=== PATIENT | female | born 1995 | race Caucasian/White ===

== ENCOUNTER 2019-04-03 16:46 | Emergency (ER) | payer OTHER ==
[2019-04-03] MEDS ORDERED: Adenosine 6 MG/2 ML VIAL ONE (16:55)
[2019-04-03 18:10] LABS: #Lymphocytes 1.1 thou/uL (1.20-3.40); #Monocytes 0.5 thou/uL (0.11-0.59); %Basophils 0.1 % (0.0-1.0); %Eosinophils 0.4 % (0.0-10.0); %Lymphocytes 9.8 % (21.0-51.0); %Neutrophils 85.8 % (42.0-75.0); Hemoglobin 12.2 g/dL (12.0-16.0); Mean Corpuscular HGB CONC 32.9 g/dL (32.0-36.0); Mean Corpuscular Hemoglobin 27.6 pg (27.0-31.0); Mean Platelet Volume 7.6 fL (7.4-10.4); Platelet Count 210 thou/uL (130-400); RBC Distribution Width 12.1 % (11.5-14.5); Red Blood Cell (RBC) Count 4.41 mill/uL (4.20-5.40); White Blood Cell (WBC) Count 11.7 thou/uL (4.8-10.8)
[2019-04-03 18:23] LABS: BHCG - Serum Negative (NEGATIVE); Pregs Control Background? CLEAR/WHITE (CLR/WHITE); Pregs Control Bar Appear? YES (CONTROL BAR)
--- NOTE | 2019-04-03 18:32 | RAD ---
FRONTAL RADIOGRAPH CHEST 04/03/19 COMPARISON: None. HISTORY: Tachycardia. FINDINGS: No pneumothorax, pleural fluid, focal consolidation, or alveolar edema. Heart and mediastinal contour s are unremarkable. IMPRESSION: No acute findings. POS: [facility]
[2019-04-03 18:36] LABS: ALT (SGPT) 13 U/L (8-55); AST (SGOT) 25 U/L (5-34); Albumin 4.4 g/dL (3.5-5.0); Alkaline Phosphatase 31 U/L (40-150); Anion Gap 12 mmol/L (10-20); BUN (Urea Nitrogen) 9 mg/dL (7.0-18.7); Bilirubin, Total 0.3 mg/dL (0.2-1.2); Calc. Creatinine Clearance 0 mL/min (70-130); Carbon Dioxide 23 mmol/L (22-29); Chloride 104 mmol/L (98-107); Estimated GFR-MDRD Greater than 90; Globulin 2.8 g/dL (2.4-3.5); Glucose 105 mg/dL (70-105); Magnesium 1.9 mg/dL (1.6-2.6); Potassium 3.7 mmol/L (3.5-5.1); Protein, Total 7.2 g/dL (6.0-8.3); Sodium 135 mmol/L (136-145)
[2019-04-03 18:54] LABS: CKMB 3.3 ng/mL (0-6.6)
[2019-04-03 19:48] LABS: Troponin I 0.276 ng/mL (< 0.028)
== END 2019-04-03 21:03 | disposition home or self-care (01) ==
LOC: ERS 16:46
DX: I47.1 Supraventricular tachycardia (principal); R79.89 Other specified abnormal findings of blood chemistry
CPT/HCPCS: 36415; 71045; 80053; 82553; 83735; 83880; 84443; 84484; 84703; 85025; 93005; 96361; 96374; J0153

== ENCOUNTER 2019-05-24 15:43 | Outpatient (CLI) | payer OTHER, BC ==
[2019-05-24 16:08] LABS: Hemoglobin 13.7 g/dL (12.0-16.0); Mean Corpuscular HGB CONC 32.7 g/dL (32.0-36.0); Mean Corpuscular Hemoglobin 27.7 pg (27.0-31.0); Mean Corpuscular Volume 84.7 fL (78.0-98.0); Mean Platelet Volume 7.1 fL (7.4-10.4); Platelet Count 277 thou/uL (130-400); RBC Distribution Width 12.1 % (11.5-14.5); Red Blood Cell (RBC) Count 4.96 mill/uL (4.20-5.40); White Blood Cell (WBC) Count 6.4 thou/uL (4.8-10.8)
[2019-05-24 16:14] LABS: INR-International Normal Ratio 0.9; PTT 26.3 SEC (22.9-36.1); Prothrombin Time 12.3 SEC (12.0-14.7)
[2019-05-24 16:36] LABS: Anion Gap 13 mmol/L (10-20); BUN (Urea Nitrogen) 12 mg/dL (7.0-18.7); Calc. Creatinine Clearance 0 mL/min (70-130); Calcium 9.8 mg/dL (7.8-10.44); Carbon Dioxide 26 mmol/L (22-29); Chloride 101 mmol/L (98-107); Estimated GFR-MDRD 88; Glucose 84 mg/dL (70-105); Potassium 3.8 mmol/L (3.5-5.1); Sodium 136 mmol/L (136-145)
[2019-05-24 17:23] LABS: BHCG - Serum Negative (NEGATIVE); Pregs Control Background? CLEAR/WHITE (CLR/WHITE); Pregs Control Bar Appear? YES (CONTROL BAR)
== END 2019-05-24 15:44 | disposition home or self-care (01) ==
LOC: LABBT 15:43
PROVIDERS: ATTEND Internal Medicine Cardiovascular Disease
DX: Z01.812 Encounter for preprocedural laboratory examination (principal); I47.1 Supraventricular tachycardia
CPT/HCPCS: 80048; 84703; 85027; 85610; 85730

== ENCOUNTER 2019-05-27 09:17 | Day surgery (SDC) | payer OTHER, BC ==
[2019-05-24 14:37] VITALS: BMI 23.3
[2019-05-27] MEDS ORDERED: Propofol 1,000 MG/100 ML VIAL IV ONE ×2 (10:01→10:40)
[2019-05-27] MEDS ORDERED: Fentanyl 100 MCG/2 ML VIAL ONE ×2 (10:01→11:32)
[2019-05-27] MEDS ORDERED: Lidocaine 1% (PF) 30 ML VIAL ONE (10:04)
[2019-05-27] MEDS ORDERED: Phenylephrine HCL 10 MG/ML VIAL ONE (10:16)
[2019-05-27] MEDS ORDERED: Midazolam HCl 2 mg/2 ml Vial ONE (10:17)
[2019-05-27] MEDS ORDERED: Heparin 10,000 UNITS/1 ML VIAL ONE ×2 (10:34→10:50)
[2019-05-27] MEDS ORDERED: Isoproterenol 0.2 MG/1 ML AMP ONE ×2 (10:48→11:25)
[2019-05-27] MEDS ORDERED: Propofol 500 MG/50 ML VIAL ONE (12:47)
--- NOTE | 2019-05-27 19:15 | OP ---
DATE OF PROCEDURE: 05/27/2019 PROCEDURE PERFORMED: Electrophysiology study and radiofrequency ablation. 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 DESCRIPTION OF PROCEDURE: The patient received propofol by Anesthesia specialist. After adequate level of sedation achieved, the left and right femoral veins were prepped, draped, and anesthetized using subcutaneous lidocaine. On the left side, a 6 and 8-[place] sheath was used to advance a decapolar and octapolar catheters into the right atrium, which were interpositioned to the right ventricle, right atrium, His bundle, and CS positions. The pacing, mapping, and recording were performed in each location including pacing the left atrium from the CS. On the right side, an 8-[place] short sheath was introduced under ultrasound guidance, through which a 4 mm ablation catheter was advanced to the right atrium and 3D map of the right atrium was obtained. Basic EP study was performed with the following findings. Baseline parameters; sinus rhythm, cycle length at 831 milliseconds, MN 189 milliseconds, QRS 59 milliseconds, QT 434 milliseconds, AH 153 milliseconds, HV 41 milliseconds measured. AV Wenckebach cycle length was initially 460 milliseconds, retrograde Wenckebach cycle length was 500 milliseconds. Av sanjeev ERP was measured at 600/360 milliseconds with dual AV sanjeev physiology seen. Concentric retrograde VA conduction was noted. Isuprel was administered, on which we were easily able to induce a narrow complex tachycardia with cycle length 280 milliseconds on Isuprel. Override ventricular pacing terminated the arrhythmia. The VA conduction during the SVT was very short, less than 80 milliseconds, suggestive of AV sanjeev reentrant tachycardia. The tachycardia was also inducible with extrastimuli testing. With the presence of slow pathway and AVNRT like tachycardia, decision was made to perform a slow pathway modification. A total of 15 lesions were delivered with total duration of 4 minute and 4 seconds with 40 mary, 50-degree settings through the 4 mm ablation catheter. Junctional beats were observed throughout the mead. Isuprel was reintroduced and at the end of the case, although ECHO beats still observed, we were not able to re-induce the supraventricular tachycardia on and off Isuprel. At the end of the case, the AV Wenckebach cycle length was 500 milliseconds. The AV sanjeev ERP was 400/280 milliseconds. Cardiac silhouette did not change through the procedure. Catheter was removed from the body and the sheaths were also removed. Manual pressure was applied to obtain hemostasis. CONCLUSION: 1. 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 2. Successful slow pathway modification, eliminating inducibility of SVT. 3. No evidence of accessory pathway. 4. Normal AV sanjeev and His-Purkinje function. Job ID: [id number] [facility]
== END 2019-05-27 19:27 | disposition home or self-care (01) ==
LOC: CCL 09:17
PROVIDERS: ATTEND Internal Medicine Cardiovascular Disease
PROC: 02583ZZ Destruction of Conduction Mechanism, Percutaneous Approach (ICD-10-PCS; principal; 2019-05-27)
DX: I47.1 Supraventricular tachycardia (principal); Z79.899 Other long term (current) drug therapy; Z88.0 Allergy status to penicillin; Z88.2 Allergy status to sulfonamides
CPT/HCPCS: 76942; 93613; 93623; 93653; C1730; C1769; J1644; J2001; J2250; J2370; J2704; J3010